=== PATIENT | female | born 1965 | race Caucasian/White ===

== ENCOUNTER 2016-11-28 07:48 | Day surgery (SDC) | payer BC ==
[2016-11-27 14:30] LABS: CHLORIDE,CL 105 mmol/L (98-110); SODIUM,NA 139 mmol/L (136-146)
[~2016-11-28 07:48] MED LIST: Fluorescein 5 ML Vial ONE; Octyl 2-Cyanoacrylate 1 Tube ONE; Sodium Chloride 0.9% 10 ML Syringe FLUSH PRN; Sodium Chloride 0.9% 2.5 ML Syringe FLUSH PRN; ceFAZolin 2 GM in Premix Bag 1 BAG IV ONE
[2016-11-28] MEDS ORDERED: Lidocaine 2% 5 ML SDV ONE (07:58)
[2016-11-28] MEDS ORDERED: Ondansetron 4 MG/2 ML SDV ONE (07:58)
[2016-11-28] MEDS ORDERED: Rocuronium 10 MG/ML 10 ML Syringe ONE (07:58)
[2016-11-28] MEDS ORDERED: fentaNYL 100 MCG/2 ML SDV ONE ×2 (07:59→09:46)
[2016-11-28] MEDS ORDERED: HYDROmorphone 2 MG/ML Syringe ONE (07:59)
[2016-11-28] MEDS ORDERED: Propofol 200 MG/20 ML SDV ONE (07:59)
[2016-11-28] MEDS ORDERED: Midazolam 1 MG/ML 2 ML SDV ONE (07:59)
[2016-11-28] MEDS ORDERED: diphenhydrAMINE 50 MG/ML SDV ONE (08:01)
[2016-11-28] MEDS ORDERED: Fluorescein 5 ML Vial ONE (08:05)
--- NOTE | 2016-11-28 08:26 | PCM.PREANE ---
Preanesthetic Assessment - Anesthesia/Transfusion/Family Hx Anesthesia History: Prior Anesthesia Without Reaction Family History of Anesthesia Reaction: No Transfusion History: No Prior Transfusion(s) Intubation History: Unknown - Review of Systems General: No Symptoms Pulmonary: No Symptoms Cardiovascular: No Symptoms Gastrointestinal: No Symptoms Neurological: No Symptoms Other: Reports: None - Physical Assessment Height: 1.68 m Weight: 73.028 kg ASA Class: 2 Mental Status: Alert & Oriented x3 Airway Class: Mallampati = 2 Dentition: Reports: Normal Dentition Thyro-Mental Finger Breadths: 3 Mouth Opening Finger Breadths: 3 ROM/Head Extension: Full Lungs: Clear to Auscultation, Normal Respiratory Effort Cardiovascular: Regular Rate, Regular Rhythm - Lab Values: Laboratory Last Values WBC 7.81 K/uL (4.0-11.0) 11/27/16 13:43 RBC 4.41 M/uL (4.30-5.90) 11/27/16 13:43 Hgb 13.8 g/dL (12.0-16.0) 11/27/16 13:43 Hct 40.0 % (36.0-46.0) 11/27/16 13:43 MCV 90.7 fL (80.0-98.0) 11/27/16 13:43 MCH 31.3 pg (27.0-32.0) 11/27/16 13:43 MCHC 34.5 g/dL (31.0-37.0) 11/27/16 13:43 RDW Std Deviation 42.5 fl (28.0-62.0) 11/27/16 13:43 RDW Coeff of Theresa 13 % (11.0-15.0) 11/27/16 13:43 Plt Count 261 K/uL (150-400) 11/27/16 13:43 MPV 9.80 fL (7.40-12.00) 11/27/16 13:43 Nucleated RBC % 0.0 /100WBC 11/27/16 13:43 Nucleated RBCs # 0 K/uL 11/27/16 13:43 Sodium 139 mmol/L (136-146) 11/27/16 13:43 Potassium 4.2 mmol/L (3.5-5.1) 11/27/16 13:43 Chloride 105 mmol/L (98-110) 11/27/16 13:43 Carbon Dioxide 28 mmol/L (21-31) 11/27/16 13:43 BUN 17 mg/dL (6.0-23.0) 11/27/16 13:43 Creatinine 0.7 mg/dL (0.6-1.5) 11/27/16 13:43 Est Cr Clr Drug Dosing 89.01 mL/min 11/27/16 13:43 Estimated GFR (MDRD) > 60.0 ml/min 11/27/16 13:43 Glucose 90 mg/dL (60-110) 11/27/16 13:43 Calcium 9.5 mg/dL (8.8-10.8) 11/27/16 13:43 HCG, Qual NEGATIVE (NEG) 11/27/16 13:43 Blood Type O POSITIVE 11/27/16 13:43 Antibody Screen NEGATIVE 11/27/16 13:43 - Allergies Allergies/Adverse Reactions: Allergies Allergy/AdvReac Type Severity Reaction Status Date / Time No Known Allergies Allergy Verified 07/06/13 16:40 - Blood Blood Available: No - Anesthesia Plan Pre-Op Medication Ordered: None - Acknowledgements Anesthesia Type Planned: General Anesthesia Pt an Appropriate Candidate for the Planned Anesthesia: Yes Alternatives and Risks of Anesthesia Discussed w Pt/Guardian: Yes Pt/Guardian Understands and Agrees with Anesthesia Plan: Yes PreAnesthesia Questionnaire Gastrointestinal History: Reports: None Genitourinary History: Reports: None [employer] History: Reports: Musculoskeletal History: Reports: None Psychiatric History: Reports: Anxiety Dermatologic History: Reports: Other (See Below) - Past Surgical History Head Surgeries/Procedures: Reports: None GI Surgical History: Reports: Appendectomy Female Surgical History: Reports: Breast Implant, Section (x4), Other (See Below) (ovarian cystectomy) Musculoskeletal Surgical History: Reports: Other (See Below) Other Musculoskeletal Surgeries/Procedures:: bunionectomy Dermatological Surgical History: Reports: Plastic Surgical Reconstruction/ Repair (liposuction) Other Dermatological Surgeries/Procedures: thyroid gland aspiration biopsy - SUBSTANCE USE Smoking Status *Q: Never Smoker Recreational Drug Use History: No - HOME MEDS Home Medications: Home Meds Cetirizine HCl/Pseudoephedrine [ZyrTEC-D] 1 tab PO DAILY 11/25/16 [History] Multivitamin [Multivitamins] 1 tab PO DAILY 11/25/16 [History] Olopatadine HCl [Patanol] 1 drop EYEBOTH ASDIRECTED PRN 11/25/16 [History] Venlafaxine HCl [Venlafaxine HCl ER] 225 mg PO DAILY 11/25/16 [History] Vitamin E 400 units PO DAILY 11/25/16 [History] - CURRENT (IN HOUSE) MEDS Current Meds: Current Medications Lactated Ringer's (Ringers, Lactated) 1,000 mls @ 125 mls/hr IV ASDIRECTED NIYAH Sodium Chloride (Saline Flush) 10 ml FLUSH ASDIRECTED PRN PRN Reason: Keep Vein Open Sodium Chloride (Saline Flush) 2.5 ml FLUSH ASDIRECTED PRN PRN Reason: Keep Vein Open Discontinued Medications Diphenhydramine HCl (Benadryl) Confirm Administered Dose 50 mg .ROUTE .STK-MED ONE Stop: 11/28/16 08:02 Fentanyl (Sublimaze) Confirm Administered Dose 100 mcg .ROUTE .STK-MED ONE Stop: 11/28/16 08:00 Fluorescein Sodium (Ak-Fluor) Confirm Administered Dose 5 ml .ROUTE .STK-MED ONE Stop: 11/28/16 07:42 Fluorescein Sodium (Ak-Fluor) Confirm Administered Dose 5 ml .ROUTE .STK-MED ONE Stop: 11/28/16 08:06 Hydromorphone HCl (Dilaudid) Confirm Administered Dose 2 mg .ROUTE .STK-MED ONE Stop: 11/28/16 08:00 Cefazolin Sodium/Dextrose 2 gm (/ Premix) 50 mls @ 100 mls/hr IV ONETIME ONE Stop: 11/27/16 08:56 Lidocaine (Xylocaine-Mpf 2%) Confirm Administered Dose 5 ml .ROUTE .STK-MED ONE Stop: 11/28/16 07:59 Midazolam HCl (Versed 1 Mg/Ml) Confirm Administered Dose 2 mg .ROUTE .STK-MED ONE Stop: 11/28/16 08:00 Octyl Cyanoacrylate (Dermabond Advance) Confirm Administered Dose 1 applic .ROUTE .STK-MED ONE Stop: 11/28/16 07:42 Ondansetron HCl (Zofran) Confirm Administered Dose 4 mg .ROUTE .STK-MED ONE Stop: 11/28/16 07:59 Propofol (Diprivan 20 Ml) Confirm Administered Dose 200 mg .ROUTE .STK-MED ONE Stop: 11/28/16 08:00 Rocuronium [place] (Zemuron) Confirm Administered Dose 100 mg .ROUTE .STK-MED ONE Stop: 11/28/16 07:59
[2016-11-28] MEDS: Lactated Ringers 1,000 ML IV SCH ×2 (08:29→14:20)
[2016-11-28] MEDS ORDERED: fentaNYL 100 MCG/2 ML SDV IVPUSH PRN (10:42)
[2016-11-28] MEDS ORDERED: Ketorolac 30 MG/ML SDV ONE (10:48)
[2016-11-28] MEDS ORDERED: Neostigmine Methylsulfate 1 MG/ML 5 ML Syringe ONE (10:56)
[2016-11-28] MEDS ORDERED: Acetaminophen/oxyCODONE 325-5 MG Tab PO PRN ×2 (11:00)
[2016-11-28] MEDS ORDERED: Morphine 4 MG/ML Syringe IVPUSH PRN (11:00)
[2016-11-28] MEDS ORDERED: Ondansetron 4 MG/2 ML SDV IVPUSH PRN (11:00)
[2016-11-28] MEDS ORDERED: Ketorolac 30 MG/ML SDV IVPUSH ONE (11:00)
[2016-11-28] MEDS ORDERED: Promethazine 25 MG/ML SDV IM PRN (11:00)
[2016-11-28] MEDS ORDERED: Morphine 2 MG/ML Syringe IVPUSH PRN (11:00)
--- NOTE | 2016-11-28 11:06 | PCM.OPNOTE ---
- General Post-Op/Procedure Note Date of Surgery/Procedure: 11/28/16 Operative Procedure(s): [facility] Jamison Salpengectomy, L opherectomy and cystoscopy. Pre Op Diagnosis: Bleeding Post-Op Diagnosis: Same Anesthesia Technique: General ET Tube Primary Surgeon: Samir Mena Elevator Serviceman: Georgette Palacio EBL in mLs: 100 Complications: None Condition: Good
--- NOTE | 2016-11-28 12:01 | OR ---
SURGEON: Samir Mena MD DATE OF PROCEDURE: 11/28/2016 PREOPERATIVE DIAGNOSES: Menometrorrhagia and dysmenorrhea. POSTOPERATIVE DIAGNOSES: Menometrorrhagia and dysmenorrhea. OPERATION PERFORMED: Total laparoscopic hysterectomy, laparoscopic bilateral salpingo-oophorectomy, laparoscopic left oophorectomy preserving the right ovary with cystoscopy. RESIDENT ADVISOR: DANY Max ANESTHESIA: General endotracheal intubation, Judith Brice and Dr. Eden. ESTIMATED BLOOD LOSS: Less than 100 mL. COMPLICATIONS: None. FINDINGS: Uterus about 10-week size. Both ovaries essentially normal. There was minimum adhesion in the abdomen, however, there is adhesion at the pelvis around her bladder from her previous section. INDICATION FOR SURGERY: [place] refer to the admit note. PROCEDURE IN DETAIL: The patient was brought to the OR, properly identified, and after adequate level of general anesthesia, the patient was placed in lithotomy position with an access to the abdomen and the vagina. The Bales catheter was placed in the bladder and the NanoDynamics surgical manipulator was placed in place and the balloon in the abdomen was deflated. Then, the operation shifted abdominally. Stab wound done beneath the umbilicus. The Veress needle was placed in the peritoneal cavity and that cavity insufflated 60 of carbon dioxide and then the peritoneum entered centrally beneath the umbilicus using Visiport technique. Once we were entered and exploring the abdomen laparoscopically, there was minimum adhesion. A 10-12 trocar and 5 mm trocar placed in the left and right iliac fossa under direct vision. The operation started by identifying the landmark of the pelvis and the superior pedicle coagulated, transected using the Marcos Harmonic scapula on both sides making the ureter was away from harm's way and the right ovary was preserved. Then the round ligament in the same manner coagulated and transected, and then the anterior leaf of the broad ligament dissected downward medially and with meticulous and a [id number] dissection of the bladder was performed away from the lower uterine segment and was clearly away from the operative field. The manipulator ring could easily palpable through the vagina. Then next step was the uterine vessel coagulated and transected with Marcos Harmonic scapula making sure the ureter away from harm's way and then the vagina was entered in the circular vagina around the tip of the PenBladeare manipulator detaching the uterus from the attachment to the vagina. The uterus was removed vaginally and thorough irrigation of the pelvis was done. At this time, there was no oozing, no bleeding. Pneumoperitoneum re-established by placing vaginal pack in the vagina and then the vaginal cuff was closed laparoscopically with 2-0 PDS interrupted without any problem. While we were doing that, we asked the anesthesiologist to give the patient fluorescein and after deflating the abdomen, cystoscopy was performed. The bladder was intact. Both ureteric orifices were seen with the dye coming from both of them. Thus, the patency of both ureters was verified. Satisfied with these finding, the procedure was ended. The instrument and hardware were retrieved from the abdomen and the vagina, and the multiple laparoscopic incisions closed in layer. The patient tolerated the procedure well. At this time, the procedure ended and the patient went to recovery room in stable general condition. DEMARIO RANGEL /[id number]
[2016-11-28] MEDS ORDERED: Acetaminophen 325 MG Tab PO PRN (16:10)
[2016-11-28] MEDS ORDERED: Acetaminophen 500 MG Tab ONE (16:21)
--- NOTE | 2016-11-28 17:12 | PCM48HPAN ---
Post Anesthesia Note - EVALUATION WITHIN 48HRS OF ANESTHETIC Vital Signs in Normal Range: Yes Patient Participated in Evaluation: No Respiratory Function Stable: Yes Airway Patent: Yes Cardiovascular Function Stable: Yes Hydration Status Stable: Yes Pain Control Satisfactory: Yes Nausea and Vomiting Control Satisfactory: Yes Mental Status Recovered: Yes - COMMENTS/OBSERVATIONS Free Text/Narrative:: Patient was sleeping but male in room states she has been doing ok.
[2016-11-28] MEDS: Ketorolac 30 MG/ML SDV IVPUSH PRN (17:45)
[2016-11-29 05:53] LABS: CHLORIDE,CL 108 mmol/L (98-110); SODIUM,NA 138 mmol/L (136-146)
[2016-11-29] MEDS: Ketorolac 30 MG/ML SDV IVPUSH PRN (07:03)
--- NOTE | 2016-11-29 09:06 | PCM.SURGPN ---
- General Info Date of Service: 11/29/16 POD#: 1 Functional Status: Reports: Pain Controlled - Review of Systems General: Reports: No Symptoms HEENT: Reports: No Symptoms Pulmonary: Reports: No Symptoms Cardiovascular: Reports: No Symptoms Gastrointestinal: Reports: No Symptoms Genitourinary: Reports: No Symptoms Musculoskeletal: Reports: No Symptoms Skin: Reports: No Symptoms Neurological: Reports: No Symptoms Psychiatric: Reports: No Symptoms - Patient Data Vitals - Most Recent: Last Vital Signs Temp 37.4 C 11/29/16 05:00 Pulse 75 11/29/16 05:00 Resp 16 11/29/16 05:00 BP 103/62 11/29/16 05:00 Pulse Ox 96 11/29/16 05:00 Weight - Most Recent: 73.028 kg I&O - Last 24 Hours: Intake & Output 11/28/16 11/29/16 11/29/16 22:59 06:59 14:59 Intake Total 1000 Output Total 300 Balance 700 Lab Results Last 24 Hrs: Laboratory Results - last 24 hr 11/27/16 11/29/16 11/29/16 Range/Units 13:43 05:17 05:17 WBC 8.07 (4.0-11.0) K/uL RBC 3.86 L (4.30-5.90) M/uL Hgb 11.8 L (12.0-16.0) g/dL Hct 35.7 L (36.0-46.0) % MCV 92.5 (80.0-98.0) fL MCH 30.6 (27.0-32.0) pg MCHC 33.1 (31.0-37.0) g/dL RDW Std Deviation 43.7 (28.0-62.0) fl RDW Coeff of Theresa 13 (11.0-15.0) % Plt Count 231 (150-400) K/uL MPV 9.80 (7.40-12.00) fL Neut % (Auto) 68.7 (48.0-80.0) % Lymph % (Auto) 23.0 (16.0-40.0) % Bailey % (Auto) 6.9 (0.0-15.0) % Eos % (Auto) 1.2 (0.0-7.0) % Baso % (Auto) 0.2 (0.0-1.5) % Neut # (Auto) 5.5 (1.4-5.7) K/uL Lymph # (Auto) 1.9 (0.6-2.4) K/uL Bailey # (Auto) 0.6 (0.0-0.8) K/uL Eos # (Auto) 0.1 (0.0-0.7) K/uL Baso # (Auto) 0.0 (0.0-0.1) K/uL Nucleated RBC % 0.0 /100WBC Nucleated RBCs # 0 K/uL Sodium 138 (136-146) mmol/L Potassium 4.4 (3.5-5.1) mmol/L Chloride 108 (98-110) mmol/L Carbon Dioxide 24 (21-31) mmol/L BUN 10 (6.0-23.0) mg/dL Creatinine 0.6 (0.6-1.5) mg/dL Est Cr Clr Drug Dosing 103.84 mL/min Estimated GFR (MDRD) > 60.0 ml/min Glucose 90 (60-110) mg/dL Calcium 8.1 L (8.8-10.8) mg/dL Magnesium 1.7 (1.5-2.3) mEq/L 11/29/16 Range/Units 05:17 WBC (4.0-11.0) K/uL RBC (4.30-5.90) M/uL Hgb (12.0-16.0) g/dL Hct (36.0-46.0) % MCV (80.0-98.0) fL MCH (27.0-32.0) pg MCHC (31.0-37.0) g/dL RDW Std Deviation (28.0-62.0) fl RDW Coeff of Theresa (11.0-15.0) % Plt Count (150-400) K/uL MPV (7.40-12.00) fL Neut % (Auto) (48.0-80.0) % Lymph % (Auto) (16.0-40.0) % Bailey % (Auto) (0.0-15.0) % Eos % (Auto) (0.0-7.0) % Baso % (Auto) (0.0-1.5) % Neut # (Auto) (1.4-5.7) K/uL Lymph # (Auto) (0.6-2.4) K/uL Bailey # (Auto) (0.0-0.8) K/uL Eos # (Auto) (0.0-0.7) K/uL Baso # (Auto) (0.0-0.1) K/uL Nucleated RBC % /100WBC Nucleated RBCs # K/uL Sodium (136-146) mmol/L Potassium (3.5-5.1) mmol/L Chloride (98-110) mmol/L Carbon Dioxide (21-31) mmol/L BUN (6.0-23.0) mg/dL Creatinine (0.6-1.5) mg/dL Est Cr Clr Drug Dosing mL/min Estimated GFR (MDRD) ml/min Glucose (60-110) mg/dL Calcium (8.8-10.8) mg/dL Magnesium 1.5 (1.5-2.3) mEq/L Med Orders - Current: Current Medications Acetaminophen (Tylenol) 1,000 mg PO Q4H PRN PRN Reason: Pain Last Admin: 11/28/16 16:29 Dose: 1,000 mg Fentanyl (Sublimaze) 50 mcg IVPUSH .Q5MIN PRN PRN Reason: Pain Lactated Ringer's (Ringers, Lactated) 1,000 mls @ 125 mls/hr IV ASDIRECTED [facility] Last Admin: 11/28/16 14:20 Dose: 125 mls/hr Ketorolac Tromethamine (Toradol) 30 mg IVPUSH Q6H PRN PRN Reason: Pain (severe 7-10) Stop: 12/03/16 11:01 Last Admin: 11/29/16 07:03 Dose: 30 mg Morphine Sulfate (Morphine) 2 mg IVPUSH Q2H PRN PRN Reason: Pain (severe 7-10) Morphine Sulfate (Morphine) 4 mg IVPUSH Q2H PRN PRN Reason: Pain (severe 7-10) Ondansetron HCl (Zofran) 4 mg IVPUSH Q6H PRN PRN Reason: Nausea/Vomiting Oxycodone/Acetaminophen (Percocet 325-5 Mg) 1 tab PO Q4H PRN PRN Reason: Pain (moderate 4-6) Last Admin: 11/28/16 20:44 Dose: 1 tab Oxycodone/Acetaminophen (Percocet 325-5 Mg) 2 tab PO Q4H PRN PRN Reason: Pain (moderate 4-6) Promethazine HCl (Phenergan) 25 mg IM Q6H PRN PRN Reason: Nausea/Vomiting Sodium Chloride (Saline Flush) 10 ml FLUSH ASDIRECTED PRN PRN Reason: Keep Vein Open Sodium Chloride (Saline Flush) 2.5 ml FLUSH ASDIRECTED PRN PRN Reason: Keep Vein Open Discontinued Medications Acetaminophen (Tylenol Extra Strength) Confirm Administered Dose 1,000 mg .ROUTE .STK-MED ONE Stop: 11/28/16 16:22 Last Admin: 11/28/16 16:30 Dose: Not Given Diphenhydramine HCl (Benadryl) Confirm Administered Dose 50 mg .ROUTE .STK-MED ONE Stop: 11/28/16 08:02 Fentanyl (Sublimaze) Confirm Administered Dose 100 mcg .ROUTE .STK-MED ONE Stop: 11/28/16 08:00 Fentanyl (Sublimaze) Confirm Administered Dose 100 mcg .ROUTE .STK-MED ONE Stop: 11/28/16 09:47 Fluorescein Sodium (Ak-Fluor) Confirm Administered Dose 5 ml .ROUTE .STK-MED ONE Stop: 11/28/16 07:42 Fluorescein Sodium (Ak-Fluor) Confirm Administered Dose 5 ml .ROUTE .STK-MED ONE Stop: 11/28/16 08:06 Glycopyrrolate () Confirm Administered Dose 1 mg .ROUTE .STK-MED ONE Stop: 11/28/16 10:57 Hydromorphone HCl (Dilaudid) Confirm Administered Dose 2 mg .ROUTE .STK-MED ONE Stop: 11/28/16 08:00 Cefazolin Sodium/Dextrose 2 gm (/ Premix) 50 mls @ 100 mls/hr IV ONETIME ONE Stop: 11/27/16 08:56 Last Admin: 11/28/16 12:46 Dose: Not Given Ketorolac Tromethamine (Toradol) Confirm Administered Dose 30 mg .ROUTE .STK- MED ONE Stop: 11/28/16 10:49 Ketorolac Tromethamine (Toradol) 30 mg IVPUSH ONETIME ONE Stop: 11/28/16 11:01 Last Admin: 11/28/16 12:47 Dose: Not Given Lidocaine (Xylocaine-Mpf 2%) Confirm Administered Dose 5 ml .ROUTE .STK-MED ONE Stop: 11/28/16 07:59 Midazolam HCl (Versed 1 Mg/Ml) Confirm Administered Dose 2 mg .ROUTE .STK-MED ONE Stop: 11/28/16 08:00 Neostigmine Methylsulfate (Neostigmine) Confirm Administered Dose 5 mg .ROUTE .STK-MED ONE Stop: 11/28/16 10:57 Octyl Cyanoacrylate (Dermabond Advance) Confirm Administered Dose 1 applic .ROUTE .STK-MED ONE Stop: 11/28/16 07:42 Ondansetron HCl (Zofran) Confirm Administered Dose 4 mg .ROUTE .STK-MED ONE Stop: 11/28/16 07:59 Propofol (Diprivan 20 Ml) Confirm Administered Dose 200 mg .ROUTE .STK-MED ONE Stop: 11/28/16 08:00 Rocuronium [place] (Zemuron) Confirm Administered Dose 100 mg .ROUTE .STK-MED ONE Stop: 11/28/16 07:59 - Exam Wound/Incisions: Healing Well General: Alert, Oriented HEENT: Pupils Equal Neck: Supple Lungs: Clear to Auscultation, Normal Respiratory Effort Cardiovascular: Regular Rate, Regular Rhythm GI/Abdominal Exam: Normal Bowel Sounds, Soft, Non-Tender, No Organomegaly, No Distention, No Abnormal Bruit, No Mass, Pelvis Stable Extremities: Normal Inspection, Normal Range of Motion, Non-Tender, No Pedal Edema, Normal Capillary Refill Skin: Warm, Dry, Intact Neurological: No New Focal Deficit Psy/Mental Status: Alert, Normal Affect, Normal Mood - Problem List Review Problem List Initiated/Reviewed/Updated: Yes - My Orders Last 24 Hours: Active Orders 24 hr Category Date Time Status Patient Status [ADT] Routine ADT 11/28/16 11:01 Active Antiembolic Devices [RC] PER UNIT ROUTINE Care 11/28/16 11:01 Active Cardiac Monitoring [RC] . DIRECTED Care 11/28/16 11:32 Inactive Oxygen Therapy [RC] ASDIRECTED Care 11/28/16 11:01 Active RT Incentive Spirometry [RC] Q2HWA Care 11/28/16 11:01 Active Veterinary Pharmacologist Discontinue [Cardiac Monitoring Care 11/29/16 08:51 Active Discontinue] [RC] Click to Edit Telemetry Monitoring [Cardiac Monitoring] [RC] . Care 11/28/16 11:41 Active DIRECTED Up With Assistance [RC] PER UNIT ROUTINE Care 11/28/16 11:01 Active Up ad Vee [RC] PER UNIT ROUTINE Care 11/28/16 11:01 Active Vital Signs [RC] PER UNIT ROUTINE Care 11/28/16 11:01 Active Regular Diet [DIET] Diet 11/28/16 Lunch Active Acetaminophen [Tylenol] Med 11/28/16 16:10 Active 1,000 mg PO Q4H PRN Acetaminophen/oxyCODONE [Percocet 325-5 MG] Med 11/28/16 11:00 Active 1 tab PO Q4H PRN Acetaminophen/oxyCODONE [Percocet 325-5 MG] Med 11/28/16 11:00 Active 2 tab PO Q4H PRN Ketorolac [Toradol] Med 11/28/16 11:00 Active 30 mg IVPUSH Q6H PRN Morphine Med 11/28/16 11:00 Active 2 mg IVPUSH Q2H PRN Morphine Med 11/28/16 11:00 Active 4 mg IVPUSH Q2H PRN Ondansetron [Zofran] Med 11/28/16 11:00 Active 4 mg IVPUSH Q6H PRN Promethazine [Phenergan] Med 11/28/16 11:00 Active 25 mg IM Q6H PRN fentaNYL [Sublimaze] Med 11/28/16 10:42 Active 50 mcg IVPUSH .Q5MIN PRN Peripheral IV Discontinue [OM.PC] Routine Oth 11/28/16 11:01 Ordered Sequential Compression Device [OM.PC] Per Unit Routine Oth 11/28/16 11:01 Ordered Resuscitation Status Routine Resus Stat 11/28/16 11:00 Ordered Medication Orders Acetaminophen (Tylenol) 1,000 mg PO Q4H PRN PRN Reason: Pain Last Admin: 11/28/16 16:29 Dose: 1,000 mg Fentanyl (Sublimaze) 50 mcg IVPUSH .Q5MIN PRN PRN Reason: Pain Lactated Ringer's (Ringers, Lactated) 1,000 mls @ 125 mls/hr IV ASDIRECTED NIYAH Last Admin: 11/28/16 14:20 Dose: 125 mls/hr Infusion: 11/28/16 14:20 Dose: 125 mls/hr Admin: 11/28/16 08:29 Dose: 125 mls/hr Ketorolac Tromethamine (Toradol) 30 mg IVPUSH Q6H PRN PRN Reason: Pain (severe 7-10) Stop: 12/03/16 11:01 Last Admin: 11/29/16 07:03 Dose: 30 mg Admin: 11/28/16 17:45 Dose: 30 mg Morphine Sulfate (Morphine) 2 mg IVPUSH Q2H PRN PRN Reason: Pain (severe 7-10) Morphine Sulfate (Morphine) 4 mg IVPUSH Q2H PRN PRN Reason: Pain (severe 7-10) Ondansetron HCl (Zofran) 4 mg IVPUSH Q6H PRN PRN Reason: Nausea/Vomiting Oxycodone/Acetaminophen (Percocet 325-5 Mg) 1 tab PO Q4H PRN PRN Reason: Pain (moderate 4-6) Last Admin: 11/28/16 20:44 Dose: 1 tab Oxycodone/Acetaminophen (Percocet 325-5 Mg) 2 tab PO Q4H PRN PRN Reason: Pain (moderate 4-6) Promethazine HCl (Phenergan) 25 mg IM Q6H PRN PRN Reason: Nausea/Vomiting Sodium Chloride (Saline Flush) 10 ml FLUSH ASDIRECTED PRN PRN Reason: Keep Vein Open Sodium Chloride (Saline Flush) 2.5 ml FLUSH ASDIRECTED PRN PRN Reason: Keep Vein Open - Assessment Assessment (Free Text/Narrative):: Status post laparoscopic hysterectomy postoperative day 1 the patient is doing well have lab work is stable there is no vaginal bleeding she is voiding without any problem she is on regular diet tolerated well hip pain is under control. The patient given the post hysterectomy instructions she was given Percocet of 7.5/325 for postoperative pain and she was given an appointment to come to the office in 2 weeks for postoperative checkup
[2016-11-29 13:27] VITALS: BP 106/66
== END 2016-11-29 09:23 | disposition home or self-care (01) ==
LOC: MW.SDS 07:48 → MW.OB 11:01 → MW.SDS 11-29 09:23
PROVIDERS: ATTEND Obstetrics & Gynecology
DX: N80.0 Endometriosis of uterus (principal); D25.1 Intramural leiomyoma of uterus; N83.02 Follicular cyst of left ovary; N83.8 Other noninflammatory disorders of ovary, fallopian tube and broad ligament; F41.9 Anxiety disorder, unspecified; Z91.09 Other allergy status, other than to drugs and biological substances; J30.2 Other seasonal allergic rhinitis; Z79.899 Other long term (current) drug therapy; Z90.49 Acquired absence of other specified parts of digestive tract; Z98.890 Other specified postprocedural states; Z90.6 Acquired absence of other parts of urinary tract
CPT/HCPCS: 36415; 58571; 80048; 83735; 84703; 85025; 85027; 86850; 86900; 86901; A9270; J1170; J1200; J1885; J2250; J2405; J3010; J7120; 00840; 88307; J2704